=== PATIENT | male | born 1940 | race Caucasian/White ===

== ENCOUNTER → 2016-08-03 | Outpatient (CLI) | payer BC ==
[~2016-08-03] MED LIST: ACET-1256 PO; APIX1TAB3 PO; ATOR-22 PO; ATOR10TA88 PO; CHOL2000 PO; CLOB-65 TOP; FLEC100T21 PO; LUPRON INJ; MEGE20TA3 PO; METR1GEL3 TOP; MULT-506 PO; OYST500T47 PO; SILD100T PO; SILV1CRE73 TOP; TAMS0.4C38 PO; VERA1TAB PO; VERA1TAB53 PO; [UNRECOGNIZED DRUG - OTHER] PO; calcium; vitamin d
[2016-08-03 14:25] LABS: BLOOD UREA NITROGEN 25 mg/dl (7-18); BUN/CREATININE RATIO 20.8 (10-20)
[2016-08-03 14:29] LABS: PROSTATE SPECIFIC ANTIGEN 0.032 ng/ml (0.000-4.000)
== END | disposition home or self-care (01) ==
LOC: C.LABBC 08:30
PROVIDERS: ATTEND Urology
DX: C61 Malignant neoplasm of prostate (principal)

== ENCOUNTER → 2016-08-10 | Outpatient (CLI) | payer BC ==
--- NOTE | 2016-08-10 17:12 | DIAGNOSTIC IMAGING REPORT ---
LEFT SHOULDER 3 VIEWS HISTORY: Left shoulder pain. COMPARISON: None. FINDINGS: There is no fracture or dislocation. Soft tissues are unremarkable. The left clavicle is intact. The bones are osteopenic. No suspicious lytic or blastic osseous lesions. Mild osteoarthritis at the glenohumeral and acromioclavicular joint. IMPRESSION: Mild degenerative changes within the left shoulder. No fracture or dislocation. Electronically signed by: Mando Fishman M.D. 08/10/2016 5:11 PM Dictated Date/Time: 08/10/2016 5:09 PM
--- NOTE | 2016-08-10 17:13 | DIAGNOSTIC IMAGING REPORT ---
RIGHT HIP 2 VIEWS CLINICAL HISTORY: Right hip pain. FINDINGS: AP and frog-leg views of the right hip are correlated with pelvic CT dated 02/02/2016. The skeletal structures are osteopenic. There is no radiographic evidence of fracture. The joint spaces of the hip appears maintained. No osteoblastic lesions are suspected. Mild sclerotic change is noted in the right sacroiliac joint. Small enthesophytes arise from the greater trochanter of the right femur. The overlying soft tissues are within normal limits. IMPRESSION: No acute bony abnormality is seen in the right hip. Electronically signed by: Tom Salgado M.D. 08/10/2016 5:12 PM Dictated Date/Time: 08/10/2016 5:11 PM
== END | disposition home or self-care (01) ==
LOC: C.RAD 16:35
PROVIDERS: ATTEND Radiology Radiation Oncology
DX: C61 Malignant neoplasm of prostate (principal)

== ENCOUNTER → 2016-08-10 | Outpatient (CLI) | payer BC ==
[~2016-08-10] MED LIST changes: +ATOR10TA82 PO; -ATOR10TA88 PO
[2016-08-10 15:08] VITALS: BP 123/79; PULSE 60; TEMP 36.3; O2SAT 98
--- NOTE | 2016-08-10 17:00 | Radiation Oncology Follow-Up ---
Radiation Oncology Follow-Up Date of Visit Aug 10, 2016. Reason For Visit One-month follow-up and cancer survivorship care plan Radiation Completion Date finished IMRT / IGRT 06-06-2016 Diagnosis (1) Prostate cancer Status: Acute Onset Date: 08/05/2010 Location: both lobes of the prostate Histology Subtype: adenocarcinoma Stage: ll (B) Permanent Comment: Rising PSA, pretreatment PSA 9.8 on finasteride therefore 19.6 Diagnosis 08/05/2010 [place] 3+3 Active surveillance with recheck biopsies 08/30/2011 3+3 08/14/2012 3+3 01/12/2016 3+4, 4+3 and 4+4 Prostate volume 22.7 Prostate density 0.86 Initiation of hormone suppression Status post completion of radiation therapy with IMRT/IGRT completed 06/06/2016 received 8040 cGy Continuation of hormone suppression for a minimum of one year Last Edited By: Cortney Newton on Aug 10, 2016 16:55 History of Present Illness This is a 76-year-old on there is been followed in urology since 2007. He had a rise in his PSA to 4.28 03/16/2008. He then underwent a biopsy 04/01/2008. This was benign. Specimen [id number]. There was some a rise of the PSA to 6.04 01/11/2010. It was then 6.37 04/06/2010. Recheck PSA 07/11/2010 7.47. At that time recheck biopsy was scheduled. He had a biopsy 08/05/2010. This revealed an adenocarcinoma 3+3 at the right anterior with 5% of the core positive specimen [id number]. He chose to continue on active surveillance. The PSA 02/02/2011 was 7.77. He had a recheck biopsy 08/30/2011. This showed adenocarcinoma 3+3 at the right mid and right apex. He continued active surveillance. Recheck PSA 03/01/2012 9.78. Rechecked 03/25/2012 9.78. The recheck PSA 07/17/2012 christine to 10.57. Repeat biopsy 08/14/2012 showed adenocarcinoma [place] 3+3 at the left anterior and right apex. With the David is continuing at 3+3 he continued on active surveillance. He had a PSA 02/27/2013 was 5.35. Recheck 07/14/2013 6.03. On 07/31/2013 he underwent green light vaporization of prostate for fulguration of prostatic bleeding. PSA on 11/10/2013 3.48. 06/04/2014 5.270. 11/23/2014 6.580. 12/01/2015 PSA 9.800. Patient underwent repeat biopsy. This showed [place] 4+4 at the left base. 3+4 at the right base. There was a 4+3 at the right mid. 4+4 at the left apex. 4+4 at the right apex. 4+4 at the left anterior. And 4+4 at the right anterior. He has undergone a CAT scan of the abdomen and pelvis as well as bone scan that were negative for metastatic disease. With these findings he has been referred to our office to discuss radiation therapy. The options of treatment were reviewed with him. He was not a candidate for seed implant due to the small prostate size. Gold fiducial markers were placed and he underwent IMRT/IGRT. The radiation was completed 06/06/2015. He received 8040 cGy Interim History He has been doing well over this past month from urinary standpoint. He gave an AUA score today of 11. The AUA score at the end of treatment was 12. He was on Flomax at that time. He made his decision to stop Flomax in June. He had seen his estate administrator. He was diagnosed with cataracts. He is planning to have surgery at some time in the future. He said possibly in one year. He wanted to be off the medication to not have any difficulty with floppy our syndrome. He therefore made a decision to stop the medication. He saw Dr. Serrano and had a PSA. This is performed on 08/03/2016. The PSA was 0.032. He previously had a 6 month Lupron injection. He is due to have a injection and that is being scheduled by Dr. Serrano's office. Dr. Serrano's note is reviewed and is plan for him to continue hormone suppression for a minimum of one year. He completed expanded prostate cancer index composite for clinical practice and gave a score of one of 12 and urinary incontinence symptoms. He gave a score of 3 of 12 and urinary irritation symptoms. He gave a score of 3 of 12 and bowel symptoms. He gave a score of 11 of 12 in sexual symptoms. He gave a score of 5 of 12 and hormonal vitality symptoms. His total was 23 of 60. He has been having discomfort in his left shoulder and right hip. This is been since May. The pain radiates down the extremity. He recalls no trauma. He does have concerns about possible metastatic disease. He did have a bone scan in January that was negative for metastatic disease. Allergies Coded Allergies: No Known Allergies (Verified Allergy, Unknown, 06/13/05) Home Medications Scheduled Apixaban (Eliquis), 5 MG PO BID Atorvastatin (Lipitor), 20 MG PO DAILY Flecainide (Tambocor), 100 MG PO BID Metronidazole Hcl (Metrogel), 1 APPLN TOP BID Multivitamin (Multivitamin), 1 TAB PO DAILY Sildenafil Citrate (Viagra), 100 MG PO PRN Verapamil (Calan Unkown Dose), 180 MG PO QAM Verapamil (Calan), 90 MG PO HS Scheduled PRN Acetaminophen (Tylenol), 2 TAB PO Q6 PRN for Mild Pain Clobetasol Propionate 0.05% (Temovate 0.05%), 1 APPLN TOP BID PRN for Itching Miscellaneous Medications [calcium] [vitamin d] Review of Systems Gastrointestinal: Symptoms: WNL Oral: Symptoms: No Problems Respiratory: Symptoms: WNL Urinary: Symptoms: Nocturia, Frequency Comments: frequency a times 6-7 times a day,nocturia times 2 , stopped flomax Skin: Symptoms: No Problems Physical Exam Vital Signs Date Time Temp Pulse Resp B/P Pulse Ox O2 Delivery O2 Flow Rate FiO2 08/10/16 15:08 36.3 60 18 123/79 98 Pain: Pain Onset: Pain Duration: gets worse at times Side: Left Patient Pain Scale: 0 - 10 Initial Pain Intensity: 4.0 Additional Comments: radiates down his arm and legs Fatigue: None General Appearance: no apparent distress Eyes: normal inspection, EOMI ENT: normal ENT inspection, hearing grossly normal Neck: no adenopathy Respiratory/Chest: lungs clear, no respiratory distress, no accessory muscle use Cardiovascular: regular rate, rhythm, no gallop, no murmur Abdomen: non tender Extremities: no pedal edema, + pertinent finding (there is mild tenderness of the anterior left shoulder. There is no tenderness of the right hip.) Neurologic/Psychiatric: no motor/sensory deficits, alert, normal mood/affect Skin: warm/dry Laboratory Studies Test 08/03/16 09:20 08/10/16 16:15 Blood Urea Nitrogen 25 mg/dl (7-18) Creatinine 1.20 mg/dl (0.60-1.40) Estimated GFR () 67.2 Estimated GFR (Non- 58.0 BUN/Creatinine Ratio 20.8 (10-20) Prostate Specific Antigen 0.032 ng/ml (0.000-4.000) Assessment & Plan Plan: Today we completed a cancer survivorship care plan. A copy of the document was given to the patient. He does have hot flashes especially at night. He will try vitamin E. He is Taking calcium and vitamin D. We'll plan a future DEXA scan. Due to the pain of his shoulder and hip x-rays will be ordered. Alkaline phosphatase was ordered to compared to previous. He is scheduled for his next Lupron injection at Dr. Serrano's office. He is continuing that for at least a minimum of one year. He is going to call our office tomorrow afternoon to review the results of his studies. They're going to be going out of town on vacation. We asked him to return to our office in 6 months. He'll continue follow-up PSAs. Total Time In Follow-Up I spent 25 minutes speaking to the patient performing examination. I spent 20 minutes reviewing information, preparing the survivorship document, and completing this note. Copy To Chay Clark M.D.; Greg Serrano MD, Urology
== END | disposition home or self-care (01) ==
LOC: C.ONC 14:57
PROVIDERS: ATTEND Physician Assistant Medical
DX: Z08 Encounter for follow-up examination after completed treatment for malignant neoplasm (principal); Z92.3 Personal history of irradiation; Z85.46 Personal history of malignant neoplasm of prostate

== ENCOUNTER → 2016-09-01 | Day surgery (SDC) | payer BC ==
[2016-08-21 08:53] VITALS: Ht 165.1 cm; Wt 68.6 kg
[~2016-09-01] VITALS: Ht 165.1 cm; Wt 68.6 kg
[~2016-09-01] MED LIST changes: -ACET-1256 PO; -ATOR10TA82 PO; +ATROPINE SULFATE 0.1 MG/ML 5ML SYR IV PRN; -CLOB-65 TOP; +EpHEDrine SULFATE INJ 50 MG/ML AMP IV PRN; +LIDOCAINE HCL 2% 2 ML VIAL (20MG/ML) ONE; -METR1GEL3 TOP; +MIDAZOLAM HCL 1 MG/ML 2ML VIAL ONE; +PROPOFOL IV EMULSION 10 MG/ML 20 ML VIAL IV ONE; -SILD100T PO; -SILV1CRE73 TOP; -TAMS0.4C38 PO; -VERA1TAB PO; -[UNRECOGNIZED DRUG - OTHER] PO; -calcium; -vitamin d
--- NOTE | 2016-09-01 09:48 | Endo History and Physical ---
History & Physical Date of Service: Sep 01, 2016. Chief Complaint: screening, h/o polyps Referring Physician: Dr. Chay Clark History of Present Illness 76 yo CM who presents for colonoscopy secondary to history of colon polyps. Past Medical History Atrial Fibrillation, Arthritis, Fractures, Male Genitourinary Prob., Reflux, Sleep Apnea, Hypertension Past Surgical History Hx Cardiac Surgery: No Hx Internal Defibrillator: No Hx Pacemaker: No Hx Abdominal Surgery: No Hx of Implantable Prosthesis: No Hx Post-Op Nausea and Vomiting: No Hx Cancer Surgery: Yes (PROSTATE BIOPSY) Hx Thoracic Surgery: No Hx Orthopedic: Yes (RT KNEE SCOPE) Hx Urinary Tract Surgery: No Family History None Social History Smoking Status: Never Smoker Hx Substance Use: No Hx Alcohol Use: Yes (1 GLASS WINE DAILY) Allergies Coded Allergies: No Known Allergies (Verified , 09/01/16) Current Medications Reported Home Medications Medications Dose Route/Sig Max Daily Dose Days Date Category Dose Instructions Multivitamin (Multivitamins) Tab 1 Tab PO QAM 08/21/16 Reported Calcium (Oyster Shell) 500 Mg Tab 1 Tab PO HS 08/21/16 Reported Vitamin D3 (Cholecalciferol) 2,000 Unit Cap 1 Cap PO QAM 08/21/16 Reported Eliquis (Apixaban) 5 Mg Tab 5 Mg PO BID 08/21/16 Reported [Lupron] 1 Dose INJ [id number] 08/21/16 Reported Megestrol Acetate 20 Mg Tab 1 Tab PO DAILY 08/21/16 Reported NEW PRESCRIPTION - PT HAS NOT STARTED MEDICATION YET Lipitor (Atorvastatin Calcium) 20 Mg Tab 20 Mg PO HS 08/21/16 Reported Verapamil Hcl Er (Verapamil Hcl) 180 Mg Tab 0.5 Tab PO HS 08/21/16 Reported Verapamil Hcl Er (Verapamil Hcl) 180 Mg Tab 1 Tab PO QAM 08/21/16 Reported Tambocor (Flecainide Acetate) 100 Mg Tab 100 Mg PO BID 06/04/10 Reported Vital Signs Weight (Kilograms): 68.64 Height (Feet): 5 Height (Inches): 5 Date Time Temp Pulse Resp B/P Pulse Ox O2 Delivery O2 Flow Rate FiO2 09/01/16 09:31 36.7 80 20 137/94 96 Room Air Physical Exam General Appearance: WD/WN, no apparent distress Respiratory/Chest: Auscultation: breath sounds normal Cardiovascular: Heart Auscultation: RRR Abdomen: Bowel Sounds: normal Inspection & Palpation: soft, non-distended, no tenderness, guarding & rebound Assessment and Plan Assessment: 76 yo CM who presents for colonoscopy secondary to history of colon polyps. Plan: Proceed with Colonoscopy.
--- NOTE | 2016-09-01 10:50 | GI REPORT ---
Procedure Date: 09/01/2016 10:05 AM Procedure: Colonoscopy Indications: High risk colon cancer surveillance: Personal history of colonic polyps Medicines: Monitored Anesthesia Care Complications: No immediate complications. Estimated Blood Loss: Estimated blood loss: none. Procedure: Pre-Anesthesia Assessment: - Prior to the procedure, a History and Physical was performed, and patient medications and allergies were reviewed. The patient's tolerance of previous anesthesia was also reviewed. The risks and benefits of the procedure and the sedation options and risks were discussed with the patient. All questions were answered, and informed consent was obtained. Prior Anticoagulants: The patient has taken Eliquis (apixaban), last dose was 2 days prior to procedure. ASA Grade Assessment: III - A patient with severe systemic disease. After reviewing the risks and benefits, the patient was deemed in satisfactory condition to undergo the procedure. After I obtained informed consent, the scope was passed under direct vision. Throughout the procedure, the patient's blood pressure, pulse, and oxygen saturations were monitored continuously. The scope was introduced through the anus and advanced to the terminal ileum. The colonoscopy was performed without difficulty. The patient tolerated the procedure well. The quality of the bowel preparation was good. Findings: Multiple small-mouthed diverticula were found in the sigmoid colon. Non-bleeding internal hemorrhoids were found during retroflexion. The hemorrhoids were small. Impression: - Diverticulosis in the sigmoid colon. - Non-bleeding internal hemorrhoids. - No specimens collected. Recommendation: - Resume previous diet. - Continue present medications. - No repeat colonoscopy due to age and the absence of advanced adenomas. - Return to primary care physician as previously scheduled. Alfred Shrestha, DO 09/01/2016 10:49:44 AM This report has been signed electronically. Note Initiated On: 09/01/2016 10:05 AM I attest to the content of the Intraoperative Record and orders documented therein, exceptions below
--- NOTE | 2016-09-01 10:52 | Discharge Instructions ---
Endoscopy Patient Instructions Date / Procedure(s) Performed Sep 01, 2016. Colonoscopy Allergy Information Coded Allergies: No Known Allergies (Verified , 09/01/16) Discharge Date / Findings Sep 01, 2016. Diverticulosis Internal hemorrhoids Medication Instructions Stopped Medication(s): Eliquis stopped 08/29/16. All other meds stopped 09/29/16. OK to resume all medications today as prescribed Reported Home Medications Medications Dose Route/Sig Max Daily Dose Days Date Category Dose Instructions Multivitamin (Multivitamins) Tab 1 Tab PO QAM 08/21/16 Reported Calcium (Oyster Shell) 500 Mg Tab 1 Tab PO HS 08/21/16 Reported Vitamin D3 (Cholecalciferol) 2,000 Unit Cap 1 Cap PO QAM 08/21/16 Reported Eliquis (Apixaban) 5 Mg Tab 5 Mg PO BID 08/21/16 Reported [Lupron] 1 Dose INJ [id number] 08/21/16 Reported Megestrol Acetate 20 Mg Tab 1 Tab PO DAILY 08/21/16 Reported NEW PRESCRIPTION - PT HAS NOT STARTED MEDICATION YET Lipitor (Atorvastatin Calcium) 20 Mg Tab 20 Mg PO HS 08/21/16 Reported Verapamil Hcl Er (Verapamil Hcl) 180 Mg Tab 0.5 Tab PO HS 08/21/16 Reported Verapamil Hcl Er (Verapamil Hcl) 180 Mg Tab 1 Tab PO QAM 08/21/16 Reported Tambocor (Flecainide Acetate) 100 Mg Tab 100 Mg PO BID 06/04/10 Reported Provider Instructions Activity Restrictions - No exercising or heavy lifting for 24 hours. - Do not drink alcohol the day of the procedure. - Do not drive a car or operate machinery until the day after the procedure. - Do not make any important decisions or sign important papers in 24 hours after the procedure. Following Day: - Return to full activity which may include returning to work/school. Diet Start your diet with liquids and light foods (jello, soup, juice, toast). Then eat your usual diet if not nauseated. Treatment For Common After Affects For mild abdominal pain, bloating, or excessive gas: - Rest - Eat lightly - Lie on right side Follow-Up Information Follow-up with Dr. Chay Clark as scheduled Anesthesia Information What You Should Know You have had a procedure that required some medicine to reduce anxiety and discomfort. This treatment is called moderate sedation. After receiving the treatment, you may be sleepy, but you will be able to breathe on your own. The effects of the treatment may last for several hours. Follow these instructions along with Activity/Diet recommendations noted above: * Do NOT do anything where dizziness or clumsiness would be dangerous. * Rest quietly at home today, then you can be up and about tomorrow. * Have a responsible person stay with you the rest of today. * You may have had an I.V. today. If so, you may take the dressing off later today. Recommendations Call your doctor if: * Trouble breathing * Continuous vomiting for more than 24 hours * Temperature above 101 degrees * Severe abdominal pain or bloating * Pain not relieved by pain medicine ordered * There is increased drainage or redness from any incision * A large amount of rectal bleeding greater than 2-3 tablespoons. (If you had a polyp/s removed or have hemorrhoids, a small amount of blood - from the rectum is to be expected.) * You have any unanswered questions or concerns. IN THE EVENT OF A SERIOUS EMERGENCY, GO TO THE NEAREST EMERGENCY ROOM Your discharge instructions were prepared by provider Alfred Shrestha. Patient Instructions Signature Page Lai Harden Patient (or Guardian) Signature/Date: I have read and understand the instructions given to me by my caregivers. Caregiver/RN/Doctor Signature/Date: The above-named patient and/or guardian has received patient instructions on this date. + Original Patient Signature Page (only) stays with chart. Please make copy for patient.
[2016-09-01 11:08] VITALS: BP 135/106; PULSE 76; O2SAT 98
--- NOTE | 2016-09-01 11:10 | Anesthesiology Progress Note ---
Anesthesia Post Op Note Date & Time Sep 01, 2016 at 11:09 Vital Signs Pain Intensity: 0 Vital Signs Past 12 Hours Date Time Temp Pulse Resp B/P Pulse Ox O2 Delivery O2 Flow Rate FiO2 09/01/16 10:55 91 16 134/100 96 Room Air 09/01/16 10:45 74 16 116/73 98 Room Air 09/01/16 09:31 36.7 80 20 137/94 96 Room Air Notes Mental Status: alert / awake / arousable, participated in evaluation Pt Amnestic to Procedure: Yes Nausea / Vomiting: adequately controlled Pain: adequately controlled Airway Patency, RR, SpO2: stable & adequate BP & HR: stable & adequate Hydration State: stable & adequate Anesthetic Complications: no major complications apparent
== END | disposition home or self-care (01) ==
LOC: C.GI 09:07
PROVIDERS: ATTEND Internal Medicine
DX: Z12.11 Encounter for screening for malignant neoplasm of colon (principal); Z86.010 Personal history of colon polyps; K57.30 Diverticulosis of large intestine without perforation or abscess without bleeding; K64.8 Other hemorrhoids; K21.9 Gastro-esophageal reflux disease without esophagitis; I48.91 Unspecified atrial fibrillation; M19.90 Unspecified osteoarthritis, unspecified site; I10 Essential (primary) hypertension

== ENCOUNTER → 2016-11-07 | Outpatient (CLI) | payer BC ==
[~2016-11-07] MED LIST changes: -ATROPINE SULFATE 0.1 MG/ML 5ML SYR IV PRN; -EpHEDrine SULFATE INJ 50 MG/ML AMP IV PRN; -LIDOCAINE HCL 2% 2 ML VIAL (20MG/ML) ONE; -MIDAZOLAM HCL 1 MG/ML 2ML VIAL ONE; -PROPOFOL IV EMULSION 10 MG/ML 20 ML VIAL IV ONE
[2016-11-07 17:12] LABS: BASO % 0.2 %; BASO ABS # 0.02 K/uL (0-0.2); COMPLETE YES; HEMATOCRIT 40.1 % (42-52); IG% 0.1 %; LYMPH % 17.3 %; LYMPH ABS # 1.43 K/uL (1.2-3.4); MEAN CELL VOLUME 93.9 fL (80-100); MEAN CORPUSCULAR HEMOGLOBIN 31.9 pg (25-34); MEAN CORPUSCULAR HGB CONC 33.9 g/dl (32-36); MEAN PLATELET VOLUME 10.8 fL (7.4-10.4); MONO % 8.3 %; NEUT % 73.1 %; PLATELET COUNT 230 K/uL (130-400); RED BLOOD COUNT 4.27 M/uL (4.7-6.1); WHITE BLOOD COUNT 8.28 K/uL (4.8-10.8)
[2016-11-07 17:16] LABS: BLOOD UREA NITROGEN 24 mg/dl (7-18); CARBON DIOXIDE 26 mmol/L (21-32); CHLORIDE 108 mmol/L (98-107); GLUCOSE 88 mg/dl (70-99); SODIUM 142 mmol/L (136-145)
== END | disposition home or self-care (01) ==
LOC: C.LABBC 14:24
PROVIDERS: ATTEND Internal Medicine Geriatric Medicine
DX: C61 Malignant neoplasm of prostate (principal); I10 Essential (primary) hypertension; E78.5 Hyperlipidemia, unspecified; Z79.01 Long term (current) use of anticoagulants; Z51.81 Encounter for therapeutic drug level monitoring; M25.512 Pain in left shoulder; I25.10 Atherosclerotic heart disease of native coronary artery without angina pectoris

== ENCOUNTER → 2016-12-28 | Outpatient (CLI) | payer BC ==
[2017-01-01 17:41] LABS: RECEPTOR BINDING AB <0.30 nmol/L (<=0.30)
== END | disposition home or self-care (01) ==
LOC: C.LABBC 11:18
PROVIDERS: ATTEND Internal Medicine Geriatric Medicine
DX: H53.2 Diplopia (principal)

== ENCOUNTER → 2017-02-15 | Outpatient (CLI) | payer BC ==
[2017-02-15 14:18] VITALS: BP 119/72; PULSE 66; TEMP 36.4; O2SAT 96
--- NOTE | 2017-02-15 15:22 | Radiation Oncology Follow-Up ---
Radiation Oncology Follow-Up Date of Visit Feb 15, 2017. Reason For Visit 6 month follow-up Radiation Completion Date 06/06/16 Diagnosis (1) Prostate cancer Status: Resolved Onset Date: 08/05/2010 Location: both lobes the prostate Histology Subtype: adenocarcinoma Stage: ll (B) Permanent Comment: Rising PSA, pretreatment PSA 9.8 on finasteride therefore 19.6 Diagnosis 08/05/2010 [place] 3+3 Active surveillance with recheck biopsies 08/30/2011 3+3 08/14/2012 3+3 01/12/2016 3+4, 4+3 and 4+4 Prostate volume 22.7 Prostate density 0.86 Initiation of hormone suppression planned for a total of 12 to18 months Status post completion of radiation therapy with IMRT/IGRT completed 06/06/2016 received 8040 cGy Last Edited By: Cortney Newton on Feb 15, 2017 15:22 History of Present Illness This is a 76-year-old on there is been followed in urology since 2007. He had a rise in his PSA to 4.28 03/16/2008. He then underwent a biopsy 04/01/2008. This was benign. Specimen [id number]. There was some a rise of the PSA to 6.04 01/11/2010. It was then 6.37 04/06/2010. Recheck PSA 07/11/2010 7.47. At that time recheck biopsy was scheduled. He had a biopsy 08/05/2010. This revealed an adenocarcinoma 3+3 at the right anterior with 5% of the core positive specimen [id number]. He chose to continue on active surveillance. The PSA 02/02/2011 was 7.77. He had a recheck biopsy 08/30/2011. This showed adenocarcinoma 3+3 at the right mid and right apex. He continued active surveillance. Recheck PSA 03/01/2012 9.78. Rechecked 03/25/2012 9.78. The recheck PSA 07/17/2012 christine to 10.57. Repeat biopsy 08/14/2012 showed adenocarcinoma [place] 3+3 at the left anterior and right apex. With the David is continuing at 3+3 he continued on active surveillance. He had a PSA 02/27/2013 was 5.35. Recheck 07/14/2013 6.03. On 07/31/2013 he underwent green light vaporization of prostate for fulguration of prostatic bleeding. PSA on 11/10/2013 3.48. 06/04/2014 5.270. 11/23/2014 6.580. 12/01/2015 PSA 9.800. Patient underwent repeat biopsy. This showed [place] 4+4 at the left base. 3+4 at the right base. There was a 4+3 at the right mid. 4+4 at the left apex. 4+4 at the right apex. 4+4 at the left anterior. And 4+4 at the right anterior. He has undergone a CAT scan of the abdomen and pelvis as well as bone scan that were negative for metastatic disease. With these findings he has been referred to our office to discuss radiation therapy. The options of treatment were reviewed with him. He was not a candidate for seed implant due to the small prostate size. Gold fiducial markers were placed and he underwent IMRT/IGRT. The radiation was completed 06/06/2015. He received 8040 cGy Interim History He's been doing well over the past 6 months. Urinary status is stable. He gave an AUA score of 4 today. He completed expanded prostate cancer index composite for clinical practice and gave a score of 0 of 12 and urinary incontinence symptoms. He gave a score of 0 of 12 and urinary irritation symptoms. He gave a score of 0 12 and bowel symptoms. He gave a score of 11 of 12 in sexual symptoms. He gave a score of 5 of 12 and hormonal vitality symptoms. His total was 16 of 60. We discussed that the symptoms he is having is related to the hormone suppression. Last Sunday he had his final Lupron injection. This was 45 mg and will last for 6 months. We reviewed his PSAs. His PSA 08/03/2016 was 0.032. His PSA on 11/07/2016 was 0.024. The patient will be moving to [place] next Sunday. He has sold his home and he and his are moving into an assisted living complex and [place]. They will be obtaining records after he establishes with a family physician and urologist. Allergies Coded Allergies: No Known Allergies (Verified , 09/01/16) Home Medications Scheduled Apixaban (Eliquis), 5 MG PO BID Atorvastatin (Lipitor), 20 MG PO HS Cholecalciferol (Vitamin D3), 1 CAP PO QAM Flecainide (Tambocor), 100 MG PO BID Multivitamin (Multivitamin), 1 TAB PO QAM Oyster Shell (Calcium), 1 TAB PO HS Verapamil Hcl (Verapamil Hcl Er), 1 TAB PO QAM Verapamil Hcl (Verapamil Hcl Er), 0.5 TAB PO HS [Lupron], 1 DOSE INJ [id number] Review of Systems Gastrointestinal: Symptoms: WNL Oral: Symptoms: No Problems Respiratory: Symptoms: WNL Other Respiratory: Cough to clear throat - attributes to PND Urinary: Symptoms: WNL, Nocturia Comments: Nocturia x 1-2, See AUA & EPIC Skin: Symptoms: No Problems Physical Exam Vital Signs Date Time Temp Pulse Resp B/P (MAP) Pulse Ox O2 Delivery O2 Flow Rate FiO2 02/15/17 14:18 36.4 66 16 119/72 96 Fatigue: None General Appearance: no apparent distress Eyes: normal inspection, EOMI ENT: normal ENT inspection, hearing grossly normal Respiratory/Chest: lungs clear, no respiratory distress, no accessory muscle use Cardiovascular: regular rate, rhythm, no gallop, no murmur Abdomen: non tender, soft, no organomegaly Anal / Rectum: Normal sphincter tone. Prostate is smooth without nodules. No rectal masses no rectal bleeding. Extremities: no pedal edema Neurologic/Psychiatric: no motor/sensory deficits, alert, normal mood/affect Skin: no rash Laboratory Studies Test 12/28/16 11:24 Acetylcholine Receptor Binding Ab <0.30 nmol/L (<=0.30) Assessment & Plan Plan: I've given him a copy of his PSAs today. We discussed future DEXA scanning due to the hormone suppression. He'll be establishing with a family physician and urologist and [place]. He will obtain his records for continued follow-up. I recommended that he have his PSA checked every 6 months. He may call our office if he has any questions or concerns. Total Time In Follow-Up I spent 20 minutes speaking to the patient performing examination. I spent 15 minutes reviewing information and completing this note. Copy To Chay Clark M.D.; Greg Serrano MD, Urology
== END | disposition home or self-care (01) ==
LOC: C.ONC 14:11
PROVIDERS: ATTEND Physician Assistant Medical
DX: Z08 Encounter for follow-up examination after completed treatment for malignant neoplasm (principal); Z92.3 Personal history of irradiation; Z85.46 Personal history of malignant neoplasm of prostate